=== PATIENT | male | born 1970 | race Caucasian/White ===

== ENCOUNTER 2017-10-05 07:51 | Emergency (ER) | payer MEDICAID, SELFPAY ==
[~2017-10-05] VITALS: Ht 180.3 cm; Wt 158.5 kg
[2017-10-05 07:54] VITALS: BP 137/90
== END 2017-10-05 08:40 | disposition home or self-care (01) ==
LOC: ED 08:25
DX: J01.00 Acute maxillary sinusitis, unspecified (principal); K21.9 Gastro-esophageal reflux disease without esophagitis; Z90.49 Acquired absence of other specified parts of digestive tract
CPT/HCPCS: 99283

== ENCOUNTER 2018-04-28 07:37 | Emergency (ER) | payer MEDICAID ==
[~2018-04-28] VITALS: Ht 190.5 cm; Wt 175.6 kg
[2018-04-28] MEDS ORDERED: KETOROLAC 30 MG/1 ML ONE (07:56)
[2018-04-28] MEDS ORDERED: KETOROLAC 30 MG/1 ML IM ONE (08:00)
[2018-04-28 09:11] VITALS: BP 120/70
== END 2018-04-28 09:13 | disposition home or self-care (01) ==
LOC: ED 09:11
DX: S39.012A Strain of muscle, fascia and tendon of lower back, initial encounter (principal); F17.210 Nicotine dependence, cigarettes, uncomplicated; K21.9 Gastro-esophageal reflux disease without esophagitis; X58.XXXA Exposure to other specified factors, initial encounter; Y93.89 Activity, other specified; Y92.89 Other specified places as the place of occurrence of the external cause; Y99.8 Other external cause status
CPT/HCPCS: 96372; 99283; J1885